=== PATIENT | female | born 1995 | race Two or more races ===

== ENCOUNTER 2024-06-18 07:09 | Emergency (ER) | payer MEDICAID, OTHER ==
[~2024-06-18] VITALS: Ht 157.5 cm; Wt 69.0 kg
[2024-06-18] MEDS ORDERED: AUG875T PO (08:01)
--- NOTE | 2024-06-18 08:34 | DVH ---
CLINICAL INDICATION: R 5th finger dog bite TECHNIQUE: 1 radiographic views of the right hand were obtained. Comparison: None FINDINGS/IMPRESSION: There is no evidence of acute fracture or dislocation. The visualized joint space is well maintained. The alignment is anatomical. No appreciable radiopaque foreign body.
--- NOTE | 2024-06-18 09:08 | ED.PDOC ---
History of Present Illness HPI Comments 28 y/o F presents with c/o laceration and puncture wound to 5th digit on right hand s/p animal bite, today. Patient reports being bitten by a dog and sustaining injuries to her 5th digit on her right hand 5x days ago. She reports being seen and evaluated by urgent care facility this week, without antibiotic prescription. Urgent care instructed pt to be evaluated at ED for further workup and obtain X-ray imaging first. She endorses on having mild pain with movement of 5th digit and having minimal relief or improvement with Tylenol and Ibuprofen use. Patient reports last tetanus shot in 2021. She denies any numbness, weakness, tingling, fever, chills, or other associated symptoms or modifiers at this time. Chief Complaint: Animal Bite Time Seen by MD: 06:45 Reviewed Notes: Nurses Notes, Medications, Allergies Allergies: Coded Allergies: NO KNOWN ALLERGIES (Unverified , 06/18/24) Home Meds Active Scripts Amoxicillin & Pot Clavulanate (AUGMENTIN TABLET) 875 Mg Tb, 875 MG PO BID for 10 Days, #20 TAB Prov:LYNNETTE DU MD 06/18/24 Information Source: Patient Mode of Arrival: Ambulatory Severity: Moderate Timing: Days Duration: Since onset Prehospital treatment: None Past Medical History PAST MEDICAL HISTORY: Denies Surgical History: [employer] History: Ovarian Cysts, Other (laparoscopy) Family History Family History: Unknown Social History Smoker: Non-Smoker Alcohol: Denies ETOH Use Drugs: Denies Drug Use Lives In: Home Integumetry: reports: laceration (to right hand 5th digit ), wounds (puncture wound to right hand 5th digit ) All Other Systems: Reviewed and Negative (negative unless otherwise stated above or in HPI) Physical Exam General Appearance: No Apparent Distress HEENT: Other (Unremarkable) Neck: Full Range of Motion, Normal Inspection Respiratory: No Accessory Muscle Use, No Respiratory Distress Cardiovascular: Regular Rate/Rhythm Breast Exam: Deferred Gastrointestinal: Non Tender, Soft Genitalia: Deferred Pelvic: Deferred Rectal: Deferred Extremities: Other (Right 5th digit healing subcentimeter puncture wound with surrounding mild soft tissue swelling, tenderness and bruising overlying the middle phalanx area. No tendon deficit noted. No fluctuance or discharge.) Neurologic: Alert (Oriented x4), Normal Affect, Normal Mood, Other (Ambulatory without difficulty. No gross focal deficit.) Cerebellar Function: NOT DONE Reflexes: NOT DONE Skin: Dry, Warm, Other (Mild soft tissue swelling and bruising of the right 5th finger) Lymphatic: NOT DONE Was a procedure done? Was a procedure done?: No Differential Dx Considerations may include: puncture bite wound, cellulitis, abscess, fracture, osteomyelitis, among others X-Ray, Labs, Meds, VS Vital Signs Date Time Temp Pulse Resp B/P (MAP) Pulse Ox O2 Delivery O2 Flow Rate FiO2 06/18/24 07:28 98.5 103 16 131/93 (106) 98 [facility] [id number] [facility] [address] Ph: [phone] DIAGNOSTIC IMAGING Diagnostic Imaging Report : [id number] Signed PATIENT: JESUS GONZALEZ ACCT: [id number] UNIT: [id number] : 1995 LOC: ER ROOM / BED: / AGE / SEX: 28 / F ADM STATUS: REG ER SERVICE 08 ORDERING PHYSICIAN: LYNNETTE DU MD PROCEDURE(s): RHAN - R HAND 3 VIEW XRAY REASON: R 5th finger dog bite ORDER NUMBER(s): [id number], ACCESSION NUMBER(s): [id number] CLINICAL INDICATION: R 5th finger dog bite TECHNIQUE: 1 radiographic views of the right hand were obtained. Comparison: None FINDINGS/IMPRESSION: There is no evidence of acute fracture or dislocation. The visualized joint space is well maintained. The alignment is anatomical. No appreciable radiopaque foreign body. ATED BY: RAH DEMARCO MD DICTATED DATE/TIME: 06/18/24828 SIGNED BY: RAH DEMARCO MD SIGNED DATE/TIME: 06/18/24828 CC: X-Ray, Labs, Meds, VS Comment 28-year-old female with no significant past medical history presenting requesting x-rays after being referred here by urgent Care where she was seen for a right 5th finger dog bite. Vitals remarkable for heart rate 103, BP 131/103 Exam remarkable for Right 5th digit healing subcentimeter puncture wound with surrounding mild soft tissue swelling, tenderness and bruising overlying the middle phalanx area. No tendon deficit noted. No fluctuance or discharge. Right hand x-rays: FINDINGS/IMPRESSION: There is no evidence of acute fracture or dislocation. The visualized joint space is well maintained. The alignment is anatomical. No appreciable radiopaque foreign body. Patient declined any pain medication in the ED. vitals were stable. Right upper extremity was neurovascularly intact. We will prescribe antibiotics for prevention of infection. Patient advised to follow up with primary doctor in 2 days for wound check. Time of 1ST Reevaluation: 07:15 Reevaluation 1ST: Unchanged Patient Education/Counseling: Diagnosis, Treatment Family Education/Counseling: No Family Present Additional Information The following tests were ordered, and results were reviewed by me: right-hand X- ray I reviewed and agreed with the following test results read by other providers: right-hand X-ray I discussed treatment and results with medical personnel Departure 1 Departure Time of Disposition: 09:29 Impression: Primary Impression: Dog bite of finger Qualified Codes: S61.259A - Open bite of unspecified finger without damage to nail, initial encounter; W54.0XXA - Bitten by dog, initial encounter Disposition: HOME / SELF CARE / HOMELESS Condition: Stable Additional Instructions: Your x-rays did not show any broken bones or foreign body. The report is attached below. Follow up with your primary doctor in 1-2 days for wound check. I have prescribed oral antibiotics to prevent infection. Continue [id number] Tylenol and ibuprofen as needed for pain. [place] [address] Ph: [phone] DIAGNOSTIC IMAGING Diagnostic Imaging Report : [id number] Signed PATIENT: JESUS GONZALEZ ACCT: [id number] UNIT: [id number] : 1995 LOC: ER ROOM / BED: / AGE / SEX: 28 / F ADM STATUS: REG ER SERVICE 0800 ORDERING PHYSICIAN: LYNNETTE DU MD PROCEDURE(s): RHAN - R HAND 3 VIEW XRAY REASON: R 5th finger dog bite ORDER NUMBER(s): [id number], ACCESSION NUMBER(s): [id number] CLINICAL INDICATION: R 5th finger dog bite TECHNIQUE: 1 radiographic views of the right hand were obtained. Comparison: None FINDINGS/IMPRESSION: There is no evidence of acute fracture or dislocation. The visualized joint space is well maintained. The alignment is anatomical. No appreciable radiopaque foreign body. ATED BY: RAH DEMARCO MD DICTATED DATE/TIME: 06/18/24828 e-Prescriptions Amoxicillin & Pot Clavulanate (AUGMENTIN TABLET) 875 Mg Tb 875 MG PO BID for 10 Days, #20 TAB Prov: LYNNETTE DU MD 06/18/24 Discharged With: Self Critical Care Note Critical Care Time?: No Stability Stability form required: No Heart Score Heart Score: Heart Score Response (Comments) Value History N/A 0 EKG N/A 0 Age N/A 0 Risk Factors N/A 0 Troponin N/A 0 Total 0 I personally scribed for LYNNETTE DU MD ([email or web address]) on 06/18/24 at 09:08. Electronically submitted by Akash Ashley ([email or web address]). LYNNETTE DU MD Jun 18, 2024 09:08
[2024-06-18 09:39] VITALS: BP 128/82; PULSE 89; RESP 16; TEMP 98; O2SAT 98
== END 2024-06-18 09:40 | disposition home or self-care (01) ==
LOC: ER 07:09
DX: S61.216A Laceration without foreign body of right little finger without damage to nail, initial encounter (principal); Z98.890 Other specified postprocedural states; W54.0XXA Bitten by dog, initial encounter; Y93.89 Activity, other specified; Y92.89 Other specified places as the place of occurrence of the external cause; Y99.8 Other external cause status
CPT/HCPCS: 73130